=== PATIENT | male | born 1995 | race Caucasian/White ===

== ENCOUNTER 2022-05-12 02:44 | Outpatient (CLI) | payer MEDICAID, SELFPAY ==
--- NOTE | 2022-05-12 10:00 | NS.NUTBLAN_ITS ---
Ronal was referred for nutritional counseling for anorexia. Reports he has always restricted calories. As child, reports often there was not enough food in home and parents were neglectful. PMH: female to male transgender, major depression, social phobia, abnormal EKG, Vit D deficiency, stress at home. 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 Ronal lives with mother and sister and never completed his GED and does not drive. Came back from [place] in March after spending a month out there working in [employer]. He lost 15 lbs while away as was able to control what he eat. Now home, he no longer is able to restrict as much as he would like. Will not eat more than 1200 calories daily. Does not want to lose more weight and does not want to gain any weight. c/o constipation, bloating and indigestion after meals. Is aware that he is starving and that it may lead to . Ronal reports he does not fear and wishes to continue on this path of restriction despite consequences. Aware that he is losing strength and has a lot of pain during day in his body. Aware that this pain is due depletion of body fat. Session today focused on listening to Ronal. At this time, Ronal is aware that he is unable to commit to therapy or a diet plan for recovery. It is telegraphic typewriter mechanic's perspective that at this low weight, outpatient services will not be fruitful. However, Ronal is not interested in in patient treatment. Unwillling to take medications for depression. Recommend Family Counseling with mother, sister and [place] to discuss how to proceed going forward. Ronal most likely will qualify for medical disability that would give him the option to move out of family home and make his own decision about his health and life moving forward. No follow up planned at this time.
== END 2022-05-12 02:45 | disposition home or self-care (01) ==
LOC: DS 02:45
PROVIDERS: Visit Provider Dietitian, Registered
DX: F50.01 Anorexia nervosa, restricting type (principal)
CPT/HCPCS: 97802